=== PATIENT | female | born 1970 | race Caucasian/White ===

== ENCOUNTER 2021-08-25 18:05 | Emergency (ER) | payer OTHER ==
[~2021-08-25] VITALS: Ht 162.6 cm; Wt 96.0 kg
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
[~2021-08-25 18:05] MED LIST: AMOXICILLIN875 MG PO; KEFLEX500 MG PO; NOHOMEMEDICATIONS
[2021-08-25 18:31] LABS: HEMOGLOBIN 13.2 gm/dL (12.0-15.0); MPV 6.9 fl. (7.2-11.1); NUCLEATED RBCS 0 /100WBC; RDW-CV 13.6 % (10.5-14.5)
[2021-08-25 18:32] LABS: HEMATOCRIT 38.3 % (37.0-47.0); MCH 30.4 pg (26.0-34.0); MCHC 34.5 g/dL (28.0-37.0); MCV 88.2 fL (80.0-100.0); RBC 4.35 mil/uL (4.20-5.00); WBC 7.4 thou/uL (4.0-11.0)
[2021-08-25 18:42] LABS: SALICYLATE < 2.8 mg/dL (2.8-20.0)
[2021-08-25 18:43] LABS: ACETAMINOPHEN < 2 ug/mL (10-30); ALCOHOL < 10 mg/dL (<10)
[2021-08-25 18:49] LABS: POTASSIUM 3.6 mmol/L (3.5-5.1)
[2021-08-25 18:54] LABS: ALBUMIN 3.9 g/dL (3.4-5.0); TOTAL BILIRUBIN 0.4 mg/dL (<0.1-1.0); TOTAL PROTEIN 7.6 g/dL (6.4-8.2)
[2021-08-25 19:05] LABS: ABSOLUTE EOSINOPHILS 0.2 thou/uL (0.0-0.7); ABSOLUTE LYMPHOCYTES 3.2 thou/uL (0.8-5.3); ABSOLUTE MONOCYTES 0.2 thou/uL (0.0-1.2); ABSOLUTE NEUTROPHILS 3.8 thou/uL (1.6-8.1)
[2021-08-25 19:06] LABS: PLATELET ESTIMATE ADEQUATE
[2021-08-25 19:07] LABS: PLATELET COUNT* 186 thou/uL (150-400)
[2021-08-25 20:34] LABS: URINE BILIRUBIN NEGATIVE (Negative); URINE BLOOD NEGATIVE (Negative); URINE CLARITY CLEAR; URINE COLOR YELLOW; URINE GLUCOSE-RANDOM NEGATIVE (Negative); URINE KETONES NEGATIVE (Negative); URINE LEUKOCYTES-REFLEX NEGATIVE (Negative); URINE NITRITE-REFLEX NEGATIVE (Negative); URINE PROTEIN NEGATIVE (Negative); URINE SPECIFIC GRAVITY >= 1.030 (1.005-1.030); URINE UROBILINOGEN 0.2 E.U./dl (0.2-1.0)
[2021-08-25 20:42] LABS: AMP/METHAMP POSITIVE (Negative); BARBITURATES Negative (Negative); BENZODIAZEPINES POSITIVE (Negative); COCAINE Negative (Negative); METHADONE Negative (Negative); OPIATES POSITIVE (Negative); PCP Negative (Negative); THC POSITIVE (Negative)
[2021-08-25 22:30] VITALS: BP 119/77
--- NOTE | 2021-08-26 08:20 | EKG ---
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
== END 2021-08-25 22:31 | disposition home or self-care (01) ==
LOC: M.ERS 18:05
PROVIDERS: Family Medicine
DX: F32.9 Major depressive disorder, single episode, unspecified (principal); F15.20 Other stimulant dependence, uncomplicated; F19.10 Other psychoactive substance abuse, uncomplicated